=== PATIENT | male | born 1950 | race African-American/Black ===

== ENCOUNTER 2019-07-26 07:09 | Day surgery (SDC) | payer MEDICARE, OTHER ==
[~2019-07-26] VITALS: Ht 180.3 cm; Wt 96.5 kg
[2019-07-26] MEDS ORDERED: LIDOCAINE 2%HCL (LOCAL ANESTH.) INJ 20ML MDV ONE (07:20)
[2019-07-26] MEDS ORDERED: IODIXANOL 320MG/ML 100ML BTL IV ONE (07:20)
[2019-07-26] MEDS ORDERED: fentaNYL CITRATE 100 MCG/2 ML VL ONE (08:01)
[2019-07-26] MEDS ORDERED: MIDAZOLAM HCL 1MG/1ML-2 ML VIAL ONE (08:01)
[2019-07-26] MEDS ORDERED: ANGIOMAX 250 MG VIAL IV ONE (08:01)
[2019-07-26] MEDS ORDERED: VERAPAMIL 2.5MG/ML INJ 2ML VIAL IV ONE (08:01)
[2019-07-26] MEDS ORDERED: SODIUM CHL 0.9% 0 ML ONE (08:01)
[2019-07-26] MEDS ORDERED: HEPARIN SODIUM (PORCINE) 5000 UNITS/ML 1ML VIAL ONE (08:21)
[2019-07-26] MEDS ORDERED: ACETAMINOPHEN 500 MG TAB PO PRN (08:45)
== END 2019-07-26 10:05 | disposition home or self-care (01) ==
LOC: CATH 07:09
PROVIDERS: ATTEND Internal Medicine
DX: I25.10 Atherosclerotic heart disease of native coronary artery without angina pectoris (principal); I10 Essential (primary) hypertension; F17.210 Nicotine dependence, cigarettes, uncomplicated; Z79.82 Long term (current) use of aspirin; Z79.899 Other long term (current) drug therapy; Z88.5 Allergy status to narcotic agent; Z90.49 Acquired absence of other specified parts of digestive tract
CPT/HCPCS: 93458; C1769; C1894; J1644; J2250; J3010; J7030; Q9967; 99152

== ENCOUNTER 2019-10-05 08:13 | Day surgery (SDC) | payer MEDICARE, OTHER ==
[~2019-10-05] VITALS: Ht 180.3 cm; Wt 86.2 kg
[~2019-10-05 08:13] MED LIST: ATOR20TA50 PO; LISI-285 PO; PERCOT PO
[2019-10-05] MEDS ORDERED: ceFAZolin 1GM/50ML 50 ML IV ONE (08:25)
[2019-10-05] MEDS ORDERED: fentaNYL CITRATE 100 MCG/2 ML VL ONE (09:33)
[2019-10-05] MEDS ORDERED: MIDAZOLAM HCL 1MG/1ML-2 ML VIAL ONE (09:33)
[2019-10-05] MEDS ORDERED: ROCURONIUM 10MG/ML 10ML VIAL IV ONE (09:33)
[2019-10-05] MEDS ORDERED: ONDANSETRON HCL 4 MG/2 ML VIAL ONE (09:33)
[2019-10-05] MEDS ORDERED: PROPOFOL 10 MG/ML 20 ML IV ONE (09:33)
[2019-10-05] MEDS ORDERED: SUCCINYLCHOLINE CHLORIDE 20 MG/ML 10ML VIAL IV ONE (10:17)
[2019-10-05] MEDS ORDERED: BUPIVACAINE 0.25% INJ 50ML VIAL ONE (10:20)
[2019-10-05] MEDS ORDERED: methylPREDNISolone ACETATE 80 MG/ML VL ONE (10:20)
[2019-10-05] MEDS ORDERED: fentaNYL CITRATE 100 MCG/2 ML VL IV PRN (10:45)
[2019-10-05] MEDS ORDERED: METOCLOPRAMIDE HCL 5MG/ml INJ 2ml VIAL IV PRN (10:45)
[2019-10-05] MEDS ORDERED: HYDROmorphone HCL 2 MG/ML VL IV PRN (10:45)
[2019-10-05 11:15] VITALS: BP 121/73
== END 2019-10-05 11:33 | disposition home or self-care (01) ==
LOC: SUR 08:13
PROVIDERS: ATTEND Orthopaedic Surgery Adult Reconstructive Orthopaedic Surgery
DX: M17.0 Bilateral primary osteoarthritis of knee (principal); M24.662 Ankylosis, left knee; Z88.5 Allergy status to narcotic agent; Z90.49 Acquired absence of other specified parts of digestive tract; Z90.89 Acquired absence of other organs; E66.01 Morbid (severe) obesity due to excess calories; Z68.30 Body mass index [BMI] 30.0-30.9, adult; F17.210 Nicotine dependence, cigarettes, uncomplicated; I10 Essential (primary) hypertension; I25.10 Atherosclerotic heart disease of native coronary artery without angina pectoris; E78.5 Hyperlipidemia, unspecified; D64.9 Anemia, unspecified; Z96.652 Presence of left artificial knee joint
CPT/HCPCS: 27570; 73560; J0330; J0690; J1040; J2250; J2405; J2704; J3010; J3490

== ENCOUNTER 2023-08-31 07:15 | Emergency (ER) | payer MEDICARE, OTHER ==
[~2023-08-31] VITALS: Ht 165.1 cm; Wt 84.0 kg
[2023-08-31] MEDS ORDERED: diphenhdrAMINE HCL 50 MG/1 ML VL IV ONE (07:45)
[2023-08-31] MEDS ORDERED: EPINEPHrine HCL 1 MG/1 ML AMP IM ONE (07:45)
[2023-08-31] MEDS ORDERED: DexAMETHasone SOD PHOS 10MG/1ML VIAL INJ IV ONE (07:45)
[2023-08-31] MEDS ORDERED: FAMOTIDINE (10MG/ML) 2ML VL IV ONE (07:45)
[2023-08-31] MEDS ORDERED: ONDANSETRON HCL 4 MG/2 ML VIAL IV ONE (07:45)
[2023-08-31 08:36] LABS: Basophils # (auto) 0 10 ^3/uL (0-0.2); Basophils % (auto) 0.5 % (0.0-2.0); Lymphocytes # (auto) 2.3 10 ^3/uL (0.4-5.4); Mean Corpuscular Hemoglobin 34.3 pg (28.0-32.0); Mean Corpuscular Volume 98.8 fL (80.0-100.0); Monocytes # (auto) 0.7 10 ^3/uL (0-1.3); Neutrophils # (auto) 3.8 10 ^3/uL (1.6-8.6); Nucleated Red Blood Cells % 0.1 %
[2023-08-31 08:37] LABS: Eosinophils # (auto) 0 10 ^3/uL (0-0.8); Eosinophils % (auto) 0.5 % (0.0-7.0); Hematocrit 44.1 % (41.0-53.0); Hemoglobin 15.3 g/dL (13.5-17.5); Mean Corpuscular Hgb Conc. 34.7 g/dL (32.0-36.0); Red Blood Cells 4.46 10^6/uL (4.5-5.90); Red Cell Distribution Width 13.9 % (11.8-14.3); White Blood Cell 6.8 10^3/uL (4.4-10.8)
[2023-08-31 08:50] LABS: INR 0.95 (0.9-1.15); Partial Thromboplastin Time 28.5 SEC (24.5-34.5)
[2023-08-31 09:06] LABS: Alanine Aminotransferase 28 U/L (7-40); Albumin 4.5 g/dL (3.2-4.8); Alkaline Phosphatase 64 U/L (46-116); Anion Gap 9 (5-15); Aspartate Aminotransferase 19 U/L (13-40); BUN/Creatinine Ratio 10.5 (10.0-20.0); Blood Urea Nitrogen 9 mg/dL (9-23); Calcium 9.4 mg/dL (8.7-10.4); Carbon Dioxide 25 mmol/L (20-30); Chloride 106 mmol/L (98-107); Glucose 98 mg/dL (74-106); Magnesium 1.9 mg/dL (1.6-2.6); Sodium 140 mmol/L (136-145)
[2023-08-31 09:07] LABS: Bilirubin, Total 0.7 mg/dL (0.2-1.0); Total Protein 6.8 g/dL (5.7-8.2)
[2023-08-31 09:08] VITALS: O2SAT 96
[2023-08-31] MEDS ORDERED: PRED20TA2 PO (11:39)
[2023-08-31 12:55] VITALS: BP 163/98; PULSE 69; RESP 19; TEMP 98
[2023-08-31 13:15] VITALS: BP 162/94; PULSE 60; RESP 18; TEMP 98
[2023-08-31 14:00] VITALS: BP 162/98; PULSE 60; RESP 18; TEMP 98; O2SAT 97
[2023-08-31 15:00] VITALS: BP 170/93; PULSE 60; RESP 18; TEMP 97.9
== END 2023-08-31 11:40 | disposition left against medical advice (07) ==
LOC: ER 07:15
DX: T78.3XXA Angioneurotic edema, initial encounter (principal); I10 Essential (primary) hypertension; M19.90 Unspecified osteoarthritis, unspecified site; Z88.8 Allergy status to other drugs, medicaments and biological substances; Z79.1 Long term (current) use of non-steroidal anti-inflammatories (NSAID); Z79.899 Other long term (current) drug therapy; Z98.890 Other specified postprocedural states; Z86.2 Personal history of diseases of the blood and blood-forming organs and certain disorders involving the immune mechanism; Y92.89 Other specified places as the place of occurrence of the external cause
CPT/HCPCS: 36415; 36430; 71045; 80053; 83735; 83880; 84484; 85025; 85610; 85730; 86850; 86900; 86901; 96372; 96374; 96375; 99285; J0171; J1100; J1200; J2405; J3490; P9017